=== PATIENT | female | born 1995 | race American Indian/Alaskan Native ===

== ENCOUNTER 2017-08-14 11:34 | Emergency (ER) | payer OTHER ==
[2017-08-14 11:42] VITALS: BP 114/63
--- NOTE | 2017-08-14 12:05 | Emergency Department Report ---
Chief Complaint: Dyspnea/Respdistress Stated Complaint: SHORTNESS OF BREATH Time Seen by Provider: 08/14/17 12:01 - HPI History of Present Illness: 18 week patient with H/O asthma presents to ED c/o productive cough, SOB and wheezing for the last 3 days; ran out of rescue inhaler but has been using nebulizer treatments but they haven't been helping, last one at 8am today ; went to her doctor this am, was sent to ED; denies CP and fevers; H/O prior admissions for asthma but denies intubation - ROS Review of Systems: Negative except for those stated in HPI - Exam Vital Signs: Vital Signs 08/14/17 11:40 Temperature 98.3 F Pulse Rate 102 H Respiratory 22 Rate Blood Pressure 114/63 O2 Sat by Pulse 96 Oximetry Physical Exam: Mild distress Tachycardic Mild wheezes bilaterally, mild labored breathing MSE screening note: Focused history and physical exam performed. Due to findings the following was ordered: ED Disposition for MSE Condition: Stable
[2017-08-14] MEDS ORDERED: DUONEB *Not for PRN Use IH ONE (12:06)
[2017-08-14 13:02] LABS: Anion Gap 20 mmol/L; BUN/Creatinine Ratio 8; Blood Urea Nitrogen 3 mg/dL (7-17); Calcium 9.1 mg/dL (8.4-10.2); Carbon Dioxide 20 mmol/L (22-30); Chloride 96.5 mmol/L (98-107); Glucose 71 mg/dL (65-100); Potassium 3.9 mmol/L (3.6-5.0); Sodium 133 mmol/L (137-145)
[2017-08-14 13:03] LABS: Hematocrit 38.4 % (30.3-42.9); Hemoglobin 12.5 gm/dl (10.1-14.3); Mean Corpuscular HGB Conc 33 % (30-34); Mean Corpuscular Hemoglobin 27 pg (28-32); Mean Corpuscular Volume 83 fl (79-97); Platelet Count 259 K/mm3 (140-440); Red Cell Distribution Width 15.3 % (13.2-15.2); White Blood Count 10.2 K/mm3 (4.5-11.0)
== END 2017-08-14 23:34 | disposition left against medical advice (07) ==
LOC: ED 11:34
DX: R06.02 Shortness of breath (principal); Z53.21 Procedure and treatment not carried out due to patient leaving prior to being seen by health care provider
CPT/HCPCS: 36415; 80048; 84702; 85027

== ENCOUNTER 2019-07-06 23:13 | Emergency (ER) | payer SELFPAY ==
[2019-07-06 23:19] VITALS: BP 134/90
--- NOTE | 2019-07-07 00:30 | Emergency Department Report ---
ED Chest Pain HPI - General Chief Complaint: Chest Pain Stated Complaint: DIZZINESS/CHEST PAIN Time Seen by Provider: 07/06/19 23:52 Source: patient Mode of arrival: Ambulatory Limitations: No Limitations - History of Present Illness Initial Comments: 23-year-old female presents to ED with complaint of chest pain. She states she was at [facility] and had onset of chest pain, shortness of breath, palpitations, dizziness, diffuse paresthesias. Patient denies leg pain or swelling. Reports sense of doom. Reports possible history of undiagnosed anxiety. Patient states symptoms lasted for approximately 1 hour. States symptoms have mostly resolved except for mild left-sided chest pain. MD Complaint: chest pain -: This evening Pain Location: left chest Pain Radiation: LUE Severity: moderate Quality: tightness Consistency: now resolved Improves With: nothing Worsens With: nothing re: dyspnea, sense of impending doom. denies: nausea, vomting, diaphoresis Other Symptoms: cough. denies: fever, leg swelling - Related Data Previous Rx's Medication Instructions Recorded Last Taken Type Ibuprofen [Motrin 600 MG tab] 600 mg PO Q6H PRN #30 tablet 01/18/18 Unknown Rx Allergies Allergy/AdvReac Type Severity Reaction Status Date / Time No Known Allergies Allergy Unverified 08/14/17 11:42 Heart Score - HEART Score History: Slightly suspicious EKG: Normal Age: < 45 Risk factors: No known risk factors Troponin: < normal limit HEART Score: 0 ED Review of Systems ROS: Stated complaint: DIZZINESS/CHEST PAIN Other details as noted in HPI Comment: All other systems reviewed and negative Constitutional: denies: chills, fever Respiratory: cough, shortness of breath Cardiovascular: chest pain, palpitations Gastrointestinal: denies: nausea, vomiting Musculoskeletal: other (denies leg pain or swelling) Neurological: paresthesias ED Past Medical Hx - Past Medical History Previous Medical History?: Yes Hx Hypertension: No Hx Congestive Heart Failure: No Hx Diabetes: No Hx Deep Vein Thrombosis: No Hx Renal Disease: No Hx Sickle Cell Disease: No Hx Seizures: No Hx Asthma: Yes (LAST USED INHALER 3 DAYS AGO) Hx COPD: No Hx HIV: No - Surgical History Past Surgical History?: No - Social History Smoking Status: Never Smoker Substance Use Type: None - Medications Home Medications: Home Medications Medication Instructions Recorded Confirmed Last Taken Type Ibuprofen [Motrin 600 MG tab] 600 mg PO Q6H PRN #30 tablet 01/18/18 Unknown Rx ED Physical Exam - General Limitations: No Limitations General appearance: alert, in no apparent distress - Head Head exam: Present: atraumatic - Eye Eye exam: Present: normal appearance, PERRL, EOMI - ENT ENT exam: Present: mucous membranes moist - Neck Neck exam: Present: normal inspection - Respiratory Respiratory exam: Present: normal lung sounds bilaterally. Absent: respiratory distress, wheezes, rales, rhonchi, stridor - Cardiovascular Cardiovascular Exam: Present: regular rate, normal rhythm - GI/Abdominal GI/Abdominal exam: Present: soft. Absent: distended, tenderness - Extremities Exam Extremities exam: Present: normal inspection. Absent: pedal edema, calf tenderness - Neurological Exam Neurological exam: Present: alert, oriented X3, CN II-XII intact. Absent: motor sensory deficit - Psychiatric Psychiatric exam: Present: normal affect, normal mood - Skin Skin exam: Present: warm, dry, intact, normal color ED Course Vital Signs 07/06/19 23:17 Temperature 98.3 F Pulse Rate 98 H Respiratory 18 Rate Blood Pressure 134/90 O2 Sat by Pulse 100 Oximetry ED Medical Decision Making - Lab Data Result diagrams: 07/07/19 00:32 07/07/19 00:32 - EKG Data -: EKG Interpreted by Me EKG shows normal: sinus rhythm, axis, intervals, QRS complexes, ST-T waves Rate: normal - EKG Data Interpretation: no acute changes - Radiology Data Radiology results: report reviewed, image reviewed - Medical Decision Making 23-year-old female with chest pain, shortness of breath, palpitations, dizziness, generalized paresthesias. EKG and chest x-ray unremarkable. Troponin and d-dimer are both normal. Vital signs are normal. Symptoms possibly due to anxiety attack. She reports she is feeling much better at this time. We'll discharge home. Outpatient follow-up advised. Return precautions given. - Differential Diagnosis anxiety, PE, ACS Critical care attestation.: If time is entered above; I have spent that time in minutes in the direct care of this critically ill patient, excluding procedure time. ED Disposition Clinical Impression: Chest pain Disposition: DC-01 TO HOME OR SELFCARE Is pt being admited?: No Condition: Stable Instructions: Chest Pain (ED), Anxiety (ED) Referrals: PRIMARY CARE, [Referring] - 3-5 Days [facility] [Provider Group] - 3-5 Days Time of Disposition: 01:50
[2019-07-07 01:02] LABS: Hematocrit 39.1 % (30.3-42.9); Hemoglobin 12.5 gm/dl (10.1-14.3); Mean Corpuscular HGB Conc 32 % (30-34); Mean Corpuscular Volume 86 fl (79-97); Platelet Count 229 K/mm3 (140-440); Red Blood Count 4.57 M/mm3 (3.65-5.03); Red Cell Distribution Width 14.3 % (13.2-15.2)
[2019-07-07 01:11] LABS: BUN/Creatinine Ratio 15; Blood Urea Nitrogen 9 mg/dL (7-17); Calcium 8.4 mg/dL (8.4-10.2); Hemolysis Index 0
[2019-07-07 01:13] LABS: INR 0.99 (0.87-1.13)
[2019-07-07 01:14] LABS: Partial Thromboplastin Time 27.9 Sec. (24.2-36.6)
--- NOTE | 2019-07-07 02:05 | XRay Report ---
CHEST 2 VIEWS 0137 INDICATION / CLINICAL INFORMATION: chestpain COMPARISON: None available. FINDINGS: SUPPORT DEVICES: None. HEART / MEDIASTINUM: No significant abnormality. LUNGS / PLEURA: No significant pulmonary or pleural abnormality. No pneumothorax. ADDITIONAL FINDINGS: No significant additional findings. IMPRESSION: No significant acute abnormality Signer Name: Micheal Xiong MD Signed: 07/07/2019 2:01 AM Workstation Name: [id number]
[2019-07-07 04:47] LABS: Total Cells Counted 100
[2019-07-07 04:48] LABS: Platelet Estimate Consistent w Auto; RBC Morphology Normal
== END 2019-07-07 02:07 | disposition home or self-care (01) ==
LOC: ED 23:13
DX: R07.89 Other chest pain (principal); R42 Dizziness and giddiness; R00.2 Palpitations; J45.909 Unspecified asthma, uncomplicated; Z79.899 Other long term (current) drug therapy
CPT/HCPCS: 36415; 71046; 80048; 84484; 84703; 85007; 85025; 85379; 85610; 85730; 93005; 93010; 99284